=== PATIENT | female | born 1975 | race Caucasian/White ===

== ENCOUNTER → 2024-04-16 | Outpatient (CLI) | payer BC ==
--- NOTE | 2024-04-16 15:32 | US ---
EXAMINATION TYPE: US kidneys/renal and bladder DATE OF EXAM: 04/16/2024 COMPARISON: NONE CLINICAL INDICATION: Female, 49 years old with history of N39.0 FREQUENT UTI; Frequent UTI's with fev ers EXAM MEASUREMENTS: Right Kidney: 6.8 x 3.8 x 3.2 cm Left Kidney: 10.2 x 6.6 x 7.0 cm Right Kidney: Appears small in size compared to contralateral kidney, cortical lobularity seen Left Kidney: No hydronephrosis or masses seen Bladder: anechoic, moderately distended Bilateral Jets not seen There is no evidence for hydronephrosis at this point in time. No nephrolithiasis is seen. No sharon s are identified. The urinary bladder is anechoic. IMPRESSION: 1. Atrophic changes right kidney. 3. Moderately distended urinary bladder.
== END | disposition home or self-care (01) ==
LOC: RADUSWWP 14:32
PROVIDERS: ATTEND Family Medicine
DX: N26.1 Atrophy of kidney (terminal) (principal); N32.89 Other specified disorders of bladder; N39.0 Urinary tract infection, site not specified
CPT/HCPCS: 76770

== ENCOUNTER 2024-06-29 23:21 | Emergency (ER) | payer BC ==
[2024-06-29 23:29] VITALS: TEMP 98.1
[2024-06-30 00:29] LABS: Basophils % (A) 0 %; Eosinophils # (A) 0.7 k/uL (0-0.7); Eosinophils % (A) 9 %; HCT 35.6 % (34.0-46.0); HGB 11.9 gm/dL (11.4-16.0); Lymphocytes # (A) 2.3 k/uL (1.0-4.8); Lymphocytes % (A) 29 %; MCH 28.6 pg (25.0-35.0); MCHC 33.4 g/dL (31.0-37.0); MCV 85.7 fL (80.0-100.0); Mean Platelet Volume 8.3; Monocytes # (A) 0.4 k/uL (0-1.0); Monocytes % (A) 5 %; Neutrophils # (A) 4.3 k/uL (1.3-7.7); Neutrophils % (A) 54 %; Platelet Count 233 k/uL (150-450); RBC 4.15 m/uL (3.80-5.40)
[2024-06-30 00:47] LABS: INR 0.9 (<1.2); Partial Thromboplastin Time 23.4 sec (22.0-30.0); Prothrombin Time 9.8 sec (10.0-12.5)
[2024-06-30 00:52] LABS: ALT 15 U/L (4-34); AST 38 U/L (14-36); African American GFR (CKD) >90 (>60 ml/min/1.73 sqM); Albumin 3.6 g/dL (3.5-5.0); Alkaline Phosphatase 87 U/L (38-126); Amylase 48 U/L (30-110); Anion Gap 2 mmol/L; Blood Urea Nitrogen 11 mg/dL (7-17); Carbon Dioxide 27 mmol/L (22-30); Chloride 108 mmol/L (98-107); Glucose 90 mg/dL (74-99); Lipase 176 U/L (23-300); Magnesium 1.6 mg/dL (1.6-2.3); Non-African American GFR(CKD) >90 (>60 ml/min/1.73 sqM); Potassium 4.6 mmol/L (3.5-5.1); Sodium 137 mmol/L (137-145); Total Bilirubin 0.7 mg/dL (0.2-1.3); Total Protein 6.5 g/dL (6.3-8.2)
--- NOTE | 2024-06-30 01:36 | XR ---
EXAM: XR Chest, 2 Views CLINICAL HISTORY: ITS.REASON XR Reason: Chest Pain TECHNIQUE: Frontal and lateral views of the chest. COMPARISON: None FINDINGS: Hardware: None. Lungs/pleura: Normal. No focal consolidation. No pleural effusion or pneumothorax. Heart/mediastinum: Normal. No cardiomegaly. Soft tissues: Unremarkable. Bones: No acute fracture. Degenerative changes of the spine. Upper abdomen: Cholecystectomy clips in the right upper quadrant. IMPRESSION: No acute disease identified.
--- NOTE | 2024-06-30 01:39 | ED ---
Chest Pain HPI - General Chief Complaint: Chest Pain Stated Complaint: CP Time Seen by Provider: 06/30/24 01:06 Source: patient Mode of arrival: ambulatory Limitations: no limitations - History of Present Illness Initial Comments: This patient is a 49-year-old woman who had panniculectomy performed on Sunday, noted that she was having some pain in the right side of the chest on Sunday, particularly with inspiration. She has not noted fever or chills. No dyspnea. No cough or hemoptysis. MD Complaint: chest pain -: days(s) Onset: during rest Pain Location: right chest Pain Radiation: none Severity: moderate Quality: aching Consistency: constant Improves With: nothing Worsens With: inspiration Treatments Prior to Arrival: none - Related Data Previous Rx's Medication Instructions Recorded Apixaban [Eliquis Starter Pack 5 - 10 mg PO DIRECTED 30 Days 07/05/24 (for VTE)] #1 each Allergies Allergy/AdvReac Type Severity Reaction Status Date / Time cefazolin [From Ancef] Allergy Rash/Hives Verified 07/02/24 00:00 sulfamethoxazole Allergy Rash/Hives Verified 07/02/24 00:00 [From Bactrim] trimethoprim [From Bactrim] Allergy Rash/Hives Verified 07/02/24 00:00 wheat Allergy Anaphylaxis Verified 07/02/24 00:00 NSAIDS (Non-Steroidal AdvReac Unknown Verified 07/02/24 00:00 Anti-Inflamma Review of Systems ROS Statement: Those systems with pertinent positive or pertinent negative responses have been documented in the HPI. ROS Other: All systems not noted in ROS Statement are negative. Constitutional: Denies: fever, chills Respiratory: Denies: cough, dyspnea, wheezes Cardiovascular: Reports: chest pain, edema. Denies: palpitations, orthopnea, syncope Gastrointestinal: Denies: abdominal pain, nausea, vomiting Genitourinary: Denies: dysuria, hematuria Musculoskeletal: Denies: back pain Skin: Denies: rash Neurological: Denies: headache, weakness EKG Findings - EKG Results: EKG: interpreted by BUSHRA MCALLISTERL, sinus rhythm (Rate 82 bpm), normal axis, normal QRS, normal ST/T, no acute changes - [place], Pacemaker, Normal: Normal tracing: normal tracing Past Medical History Past Medical History: No Reported History History of Any Multi-Drug Resistant Organisms: None Reported Past Surgical History: Bariatric Surgery, Cholecystectomy Additional Past Surgical History / Comment(s): lapectomy, sinus Past Psychological History: ADD/ADHD Smoking Status: Never smoker Past Alcohol Use History: Occasional Past Drug Use History: None Reported General Exam Limitations: no limitations General appearance: alert, in no apparent distress Head exam: Present: atraumatic, normocephalic Eye exam: Present: normal appearance. Absent: scleral icterus, conjunctival in jection Neck exam: Present: normal inspection Respiratory exam: Present: normal lung sounds bilaterally. Absent: respiratory distress, wheezes, rales, rhonchi, stridor, accessory muscle use Cardiovascular Exam: Present: regular rate, normal rhythm, normal heart sounds. Absent: systolic murmur, diastolic murmur, rubs, gallop GI/Abdominal exam: Present: soft. Absent: distended, tenderness, guarding, rebound, rigid, mass Extremities exam: Present: normal inspection, normal capillary refill. Absent: pedal edema, calf tenderness Back exam: Present: normal inspection. Absent: CVA tenderness (R), CVA tenderness (L) Neurological exam: Present: alert Skin exam: Present: warm, dry, intact, normal color. Absent: rash Course Vital Signs 06/29/24 06/30/24 06/30/24 23:25 01:55 03:29 Temperature 98.1 F Pulse Rate 91 87 91 Respiratory 18 16 18 Rate Blood Pressure 149/86 149/101 143/93 O2 Sat by Pulse 100 95 96 Oximetry Chest Pain [facility] Patient is 49-year-old woman with a recent surgical history presenting with chest pain concerning for possible pulmonary embolism. The patient did have CT scan of the chest with contrast that I interpreted as negative for acute pulmonary embolism, negative for pneumothorax. The patient feeling better on reevaluation and would like to go home. She does appear stable we discussed the appropriate further care and follow-up as well as return parameters. Patient had chest x-ray that I interpreted as negative for acute infiltrate, negative for pneumothorax or congestive heart failure. Was pt. sent in by a medical professional or institution (, PA, REPULPING SUPERVISOR, urgent care, hospital, or intermediate...) When possible be specific @ -[No] Did you speak to anyone other than the patient for history (EMS, parent, family, police, friend...)? What history was obtained from this source @ -[No] Did you review nursing and triage notes (agree or disagree)? Why? @ -[I reviewed and agree with nursing and triage notes] Were old charts reviewed (outside hosp., previous admission, EMS record, old EKG, old radiological studies, urgent care reports/EKG's, intermediate records)? Report findings @ -[No old charts were reviewed] Differential Diagnosis (chest pain, altered mental status, abdominal pain women, abdominal pain men, vaginal bleeding, weakness, fever, dyspnea, syncope, headache, dizziness, GI bleed, back pain, seizure, CVA, palpatations, mental health, musculoskeletal)? @ -[Differential Chest Pain: Stable Angina, Unstable Angina, STEMI, NSTEMI Aortic Dissection, Pneumothorax, Musculoskeletal, Esophageal Spasm GERD, Cholecystitis, Pancreatitis, Zoster, this is not meant to be an all-inclusive list. EKG interpreted by me (3pts min.). @ -[I interpreted as above X-rays interpreted by me (1pt min.). @ -[I interpreted as above CT interpreted by me (1pt min.). @ -[I interpreted as above U/S interpreted by me (1pt. min.). @ -[None done] What testing was considered but not performed or refused? (CT, X-rays, U/S, labs)? Why? @ -[None] What meds were considered but not given or refused? Why? @ -[None] Did you discuss the management of the patient with other professionals (professionals i.e. , PA, REPULPING SUPERVISOR, lab, RT, psych nurse, vp digital marketing social media and crm, front office specialist, teacher, horticultural technical officer, case investigator)? Give summary @ -[No] Was smoking cessation discussed for >3mins.? @ -[No] Was critical care preformed (if so, how long)? @ -[No] Were there social determinants of health that impacted care today? How? (Homeles sness, low income, unemployed, alcoholism, drug addiction, transportation, low edu. Level, literacy, decrease access to med. care, assisted, rehab)? @ -[No] Was there de-escalation of care discussed even if they declined (Discuss DNR or withdrawal of care, Hospice)? DNR status @ -[No] What co-morbidities impacted this encounter? (DM, HTN, Smoking, COPD, CAD, Cancer, CVA, ARF, Chemo, Hep., AIDS, mental health diagnosis, sleep apnea, morbid obesity)? @ -[Recent panniculectomy Was patient admitted / discharged? Hospital course, mention meds given and route, prescriptions, significant lab abnormalities, going to OR and other pertinent info. @ -[As above Undiagnosed new problem with uncertain prognosis? @ -[No] Drug Therapy requiring intensive monitoring for toxicity (Heparin, Nitro, Insulin, Cardizem)? @ -[No] Were any procedures done? @ -[No] Diagnosis/symptom? @ -[Acute chest pain Acute, or Chronic, or Acute on Chronic? @ -[Acute Uncomplicated (without systemic symptoms) or Complicated (systemic symptoms)? @ -[Uncomplicated Side effects of treatment? @ -[No] Exacerbation, Progression, or Severe Exacerbation? @ -[No] Poses a threat to life or bodily function? How? (Chest pain, [place], [place], pneumonia, PE, COPD, DKA, ARF, appy, cholecystitis, CVA, Diverticulitis, Homicidal, Suicidal, threat to staff... and all critical care pts) @ -[No] Disposition Clinical Impression: Chest pain Disposition: HOME SELF-CARE Condition: Good Instructions (If sedation given, give patient instructions): Chest Pain (ED) Is patient prescribed a controlled substance at d/c from ED?: No Referrals: Mitul Morris MD [Primary Care Provider] - 1-2 days
--- NOTE | 2024-06-30 02:00 | CT ---
EXAM: CT Angiography Chest With Intravenous Contrast CLINICAL HISTORY: ITS.REASON CT Reason: chest pain, possible PE TECHNIQUE: Axial computed tomographic angiography images of the chest with intravenous contrast. CTDI is 7.2 mGy and DLP is 276.9 mGy-cm. This CT exam was performed using one or more of the following dose reduction techniques: automated exposure control, adjustment of the mA and/or kV according to patient size, and/or use of iterative reconstruction technique. MIP reconstructed images were created and reviewed. COMPARISON: None FINDINGS: Pulmonary arteries: Unremarkable. No pulmonary embolus identified. Aorta: No acute findings. No aortic aneurysm or dissection. Lungs: Mild groundglass opacities in the left upper lobe and at the lung bases may represent atelectasis. Mild infectious/inflammatory process cannot be excluded. Pleural space: Unremarkable. No significant effusion. No pneumothorax. Heart: Unremarkable. No cardiomegaly. No significant pericardial effusion. No evidence of RV dysfunction. Bones/joints: Degenerative changes of the spine. No acute fracture. No dislocation. Soft tissues: Body wall edema. Lymph nodes: Unremarkable. No enlarged lymph nodes. Gallbladder and bile ducts: Prior cholecystectomy. Stomach and bowel: Gastric bypass changes. Evaluation of the stomach is limited by under distention. IMPRESSION: 1. No pulmonary embolus identified. 2. No aortic aneurysm or dissection. 3. Mild groundglass opacities in the left upper lobe and at the lung bases may represent atelectasis. Mild infectious/inflammatory process cannot be excluded.
[2024-06-30 03:45] VITALS: BP 143/93; PULSE 91; RESP 18
== END 2024-06-30 03:46 | disposition home or self-care (01) ==
LOC: EC 23:21
CPT/HCPCS: 36415; 71046; 71275; 80053; 82150; 83605; 83690; 83735; 84484; 85025; 85610; 85730; 93005; 99285

== ENCOUNTER 2024-07-01 23:59 | Emergency (ER) | payer BC ==
[2024-07-02 00:06] VITALS: TEMP 98
--- NOTE | 2024-07-02 00:20 | ED ---
Extremity Problem HPI - General Source: patient Mode of arrival: ambulatory Limitations: no limitations <Davey Blevins - Last Filed: 07/02/24 21:18> <Paola Avelar - Last Filed: 07/10/24 10:07> - General Chief complaint: Extremity Problem,Nontraumatic Stated complaint: left leg swelling and redness Time Seen by Provider: 07/02/24 00:10 - History of Present Illness Initial comments: 49-year-old female presenting with chief complaint of pain and swelling to lower extremities. Patient had a panniculectomy performed about a week ago. She is having swelling to the lower extremities. She also noticed today a somewhat reddened and tender swollen area to the upper thigh. She is having no chest pain or difficulty breathing. She was here on the with chest pain and had a CTA performed which was negative for PE. (Davey Blevins) - Related Data Previous Rx's Medication Instructions Recorded Apixaban [Eliquis Starter Pack 5 - 10 mg PO DIRECTED 30 Days 07/05/24 (for VTE)] #1 each Allergies Allergy/AdvReac Type Severity Reaction Status Date / Time cefazolin [From Ancef] Allergy Rash/Hives Verified 07/02/24 00:00 sulfamethoxazole Allergy Rash/Hives Verified 07/02/24 00:00 [From Bactrim] trimethoprim [From Bactrim] Allergy Rash/Hives Verified 07/02/24 00:00 wheat Allergy Anaphylaxis Verified 07/02/24 00:00 NSAIDS (Non-Steroidal AdvReac Unknown Verified 07/02/24 00:00 Anti-Inflamma Review of Systems ROS Other: All systems not noted in ROS Statement are negative. <Davey Blevins - Last Filed: 07/02/24 21:18> ROS Other: All systems not noted in ROS Statement are negative. <Paola Avelar - Last Filed: 07/10/24 10:07> ROS Statement: Those systems with pertinent positive or pertinent negative responses have been documented in the HPI. Past Medical History Past Medical History: No Reported History History of Any Multi-Drug Resistant Organisms: None Reported Past Surgical History: Bariatric Surgery, Cholecystectomy Additional Past Surgical History / Comment(s): lapectomy, sinus, vein stripping procedure, Past Psychological History: ADD/ADHD Smoking Status: Never smoker Past Alcohol Use History: Occasional Past Drug Use History: None Reported <Davey Blevins - Last Filed: 07/02/24 21:18> General Exam Limitations: no limitations General appearance: alert, in no apparent distress Head exam: Present: atraumatic, normocephalic, normal inspection Eye exam: Present: normal appearance, EOMI Neck exam: Present: normal inspection. Absent: meningismus Respiratory exam: Absent: respiratory distress, wheezes, stridor Cardiovascular Exam: Present: regular rate Extremities exam: Present: pedal edema Neurological exam: Present: alert, oriented X3 Psychiatric exam: Present: normal affect, normal mood Skin exam: Present: warm, dry <Davey Blevins - Last Filed: 07/02/24 21:18> Course Vital Signs 07/02/24 07/02/24 00:00 05:34 Temperature 98.0 F Pulse Rate 82 72 Respiratory 13 18 Rate Blood Pressure 136/84 117/84 O2 Sat by Pulse 100 99 Oximetry Medical Decision Making <Davey Blevins - Last Filed: 07/02/24 21:18> <Paola Avelar - Last Filed: 07/10/24 10:07> - Medical Decision Making Was pt. sent in by a medical professional or institution (, PA, PNEUMATIC SYSTEM CONVEYOR OPERATOR, urgent care, hospital, or shelter...) When possible be specific @ -No Did you speak to anyone other than the patient for history (EMS, parent, family, police, friend...)? What history was obtained from this source @ -No Did you review nursing and triage notes (agree or disagree)? Why? @ -I reviewed and agree with nursing and triage notes Were old charts reviewed (outside hosp., previous admission, EMS record, old EKG, old radiological studies, urgent care reports/EKG's, shelter records)? Report findings @ -No old charts were reviewed Differential Diagnosis (chest pain, altered mental status, abdominal pain women, abdominal pain men, vaginal bleeding, weakness, fever, dyspnea, syncope, headache, dizziness, GI bleed, back pain, seizure, CVA, palpatations, mental health, musculoskeletal)? @ -Differential Musculoskeletal Muscular strain, contusion, ligament sprain, fracture, arthritis, septic arthritis, bursitis, cellulitis, muscle spasm, nerve compression, DVT, arterial occlusion, herpes zoster, electrolyte abnormality, tumor.... This is not meant to be in all inclusive list EKG interpreted by me (3pts min.). @ -As above X-rays interpreted by me (1pt min.). @ -None done CT interpreted by me (1pt min.). @ -None done U/S interpreted by me (1pt. min.). @ -Report is pending What testing was considered but not performed or refused? (CT, X-rays, U/S, labs)? Why? @ -None What meds were considered but not given or refused? Why? @ -None Did you discuss the management of the patient with other professionals (professionals i.e. Dr., PA, PNEUMATIC SYSTEM CONVEYOR OPERATOR, lab, RT, psych nurse, social media content specialist, longwall headgate operator, teacher, combat information center officer, special education case manager)? Give summary @ -No Was smoking cessation discussed for >3mins.? @ -No Was critical care preformed (if so, how long)? @ -No Were there social determinants of health that impacted care today? How? (Homelessness, low income, unemployed, alcoholism, drug addiction, transportation, low edu. Level, literacy, decrease access to med. care, custodial, rehab)? @ -No Was there de-escalation of care discussed even if they declined (Discuss DNR or withdrawal of care, Hospice)? DNR status @ -No What co-morbidities impacted this encounter? (DM, HTN, Smoking, COPD, CAD, Cancer, CVA, ARF, Chemo, Hep., AIDS, mental health diagnosis, sleep apnea, morbid obesity)? @ -None Was patient admitted / discharged? Hospital course, mention meds given and route, prescriptions, significant lab abnormalities, going to OR and other pertinent info. @ -49-year-old female presenting with chief complaint of swelling to lower extremities. Recent panniculectomy last Sunday. Ultrasound is ordered to rule out DVT. Report is pending and patient is signed out to my attending Dr. Avelar (Davey Blevins) Patient signed out to myself by Linnette SIMS. Pending DVT ultrasound. Was patient admitted / discharged? Hospital course, mention meds given and route, prescriptions, significant lab abnormalities, going to OR and other pertinent info. @ -Discharged Ultrasound resulted with nonocclusive clot in the large saphenous vein. Given patient's recent surgery, I feel risk of bleeding from starting anticoagulation outweighs benefit as DVT is not and the deep venous system. I discussed with the patient plan for warm compresses, compression stockings and plan for follow- up ultrasound in the next 3 to 5 days. We discussed elevating her legs and performing frequent leg exercises. Patient is unable to take NSAIDs due to hx gastric bypass. Patient to follow up with her PCP for repeat ultrasound and r eassessment in next 3-5 days. Discussed with the patient the importance of monitoring for worsening symptoms, lack of improvement of symptoms with these interventions, or new shortness of breath or chest pain and should she experience the symptoms she needs to return to the emergency department immediately. Patient is comfortable and agreeable with this plan. In my medical judgment there is currently no evidence of an immediate life- threatening or surgical condition. Discharge is therefore indicated at this time. Discharge treatment instructions, follow up instructions, and appropriate e mergency department return precautions were discussed with the patient and/or medical decision maker. Patient and/or medical decision maker expressed understanding of and agreed with the treatment plan, follow up instructions, and emergency department return precaution. All patient's and/or medical decision maker's questions were answered. Undiagnosed new problem with uncertain prognosis? @ -No Drug Therapy requiring intensive monitoring for toxicity (Heparin, Nitro, Insulin, Cardizem)? @ -No Were any procedures done? @ -No Diagnosis/symptom? @Superficial DVT Acute, or Chronic, or Acute on Chronic? @Acute Uncomplicated (without systemic symptoms) or Complicated (systemic symptoms)? @ -Uncomplicated Side effects of treatment? @ -No Exacerbation, Progression, or Severe Exacerbation? @ -No Poses a threat to life or bodily function? How? (Chest pain, [place], [place], pneumonia, PE, COPD, DKA, ARF, appy, cholecystitis, CVA, Diverticulitis, Homicidal, Suicidal, threat to staff... and all critical care pts) @ No (Paola Avelar) Disposition Is patient prescribed a controlled substance at d/c from ED?: No <Davey Blevins - Last Filed: 07/02/24 21:18> Is patient prescribed a controlled substance at d/c from ED?: No <Paola Avelar - Last Filed: 07/10/24 10:07> Clinical Impression: Leg swelling, Superficial thrombophlebitis Disposition: HOME SELF-CARE Condition: Good Instructions (If sedation given, give patient instructions): Leg Edema (ED) Additional Instructions: Every disease is a spectrum and a small chance still exists that a serious c ondition could develop, for this reason, please monitor yourself closely for new, changing or worsening symptoms, symptoms that do not improve in the next 3 to 5 days, worsening redness, swelling or pain in your affected extremity, chest pain or shortness of breath [fever], inability to tolerate/keep down fluids or your medications, inability to follow up with outpatient providers as instructed and should you experience these symptoms or should you have any further concerns for your wellbeing please return to the ED or call 911 immediately. Please wear tall (up to your upper thigh if possible) compression stockings as often as possible, apply warm compresses to the affected area for 20 minutes every 3-4 hours, frequently elevate your legs and continue gentle exercises and walking as you are able to tolerate, follow-up with your primary care doctor for a repeat ultrasound in the next 3 to 5 days and if you are unable to please return to the emergency department for repeat ultrasound to monitor DVT. PLEASE call your primary care physician as soon as possible to arrange / discuss plan for followup appointment. Appointment in the next 1-3 days is strongly encouraged if possible. PLEASE let us know here before you leave if there is anything further we can do to be of any assistance. Take care and feel Better! . Referrals: Mitul Morris MD [Primary Care Provider] - 1-2 days
--- NOTE | 2024-07-02 04:52 | US ---
EXAM: US Duplex Bilateral Lower Extremities Veins CLINICAL HISTORY: ITS.REASON US Reason: Swelling, recent surgery TECHNIQUE: Real-time duplex ultrasound scan of the bilateral lower extremity veins integrating B-mode two-dimensional vascular structure, Doppler spectral analysis, color flow Doppler imaging and compression. COMPARISON: None FINDINGS: Right deep veins: Unremarkable. No DVT in the right common femoral, femoral, proximal deep femoral or popliteal veins. The veins demonstrate normal color flow, are normally compressible, with normal phasic flow and/or augmentation response. Right superficial veins: Unremarkable. No thrombus in the visualized right great saphenous vein. Left deep veins: Unremarkable. No DVT in the left common femoral, femoral, proximal deep femoral or popliteal veins. The veins demonstrate normal color flow, are normally compressible, with normal phasic flow and/or augmentation response. Left superficial veins: Nonocclusive thrombus in the visualized left greater saphenous vein. Soft tissues: No acute findings. No popliteal cyst. IMPRESSION: Nonocclusive thrombus in the visualized left greater saphenous vein. No deep venous thrombosis identified in either lower extremity.
[2024-07-02 05:37] VITALS: BP 117/84; PULSE 72; RESP 18
== END 2024-07-02 05:38 | disposition home or self-care (01) ==
LOC: EC 23:59
CPT/HCPCS: 93970; 99283

== ENCOUNTER 2024-07-05 12:15 | Emergency (ER) | payer BC ==
--- NOTE | 2024-07-05 12:42 | ED ---
General Adult HPI - General Chief complaint: Extremity Problem,Nontraumatic Stated complaint: L Leg Blood Clot Time Seen by Provider: 07/05/24 12:25 Source: patient, RN notes reviewed, old records reviewed Mode of arrival: ambulatory Limitations: no limitations - History of Present Illness Initial comments: Is a 49-year-old female who presents to the emergency department to get an ultrasound of her left leg. Patient was here 3 days ago and it was a nonocclusive clot in the left leg and she was instructed to follow-up with her primary medical care doctor when she spoke with the office today they told her to come to the emergency department to get another ultrasound. Patient denies any increased swelling or redness. Patient denies any increased tenderness. Patient is any shortness of breath difficulty breathing or chest pain - Related Data Previous Rx's Medication Instructions Recorded Apixaban [Eliquis Starter Pack 5 - 10 mg PO DIRECTED 30 Days 07/05/24 (for VTE)] #1 each Allergies Allergy/AdvReac Type Severity Reaction Status Date / Time cefazolin [From Ancef] Allergy Rash/Hives Verified 07/02/24 00:00 sulfamethoxazole Allergy Rash/Hives Verified 07/02/24 00:00 [From Bactrim] trimethoprim [From Bactrim] Allergy Rash/Hives Verified 07/02/24 00:00 wheat Allergy Anaphylaxis Verified 07/02/24 00:00 NSAIDS (Non-Steroidal AdvReac Unknown Verified 07/02/24 00:00 Anti-Inflamma Review of Systems ROS Statement: Those systems with pertinent positive or pertinent negative responses have been documented in the HPI. ROS Other: All systems not noted in ROS Statement are negative. Past Medical History Past Medical History: No Reported History History of Any Multi-Drug Resistant Organisms: None Reported Past Surgical History: Bariatric Surgery, Cholecystectomy Additional Past Surgical History / Comment(s): lapectomy, sinus, vein stripping procedure, Past Psychological History: ADD/ADHD Smoking Status: Never smoker Past Alcohol Use History: Occasional Past Drug Use History: None Reported General Exam - General Exam Comments Initial Comments: GENERAL: Patient is well-developed and well-nourished. Patient is nontoxic and well- hydrated and is in mild distress. ENT: Neck is soft and supple. No significant lymphadenopathy is noted. Oropharynx is clear. Moist mucous membranes. Neck has full range of motion without eliciting any pain. EYES: The sclera were anicteric and conjunctiva were pink and moist. Extraocular movements were intact and pupils were equal round and reactive to light. Eyelids were unremarkable. SKIN: Skin is clear with no lesions or rashes and otherwise unremarkable. NEUROLOGIC: Patient is alert and oriented x3. Cranial nerves II through XII are grossly intact. Motor and sensory are also intact. Normal speech, volume and content. Symmetrical smile. MUSCULOSKELETAL: Normal extremities with adequate strength and full range of motion. No lower extremity swelling or edema. No calf tenderness. LYMPHATICS: No significant lymphadenopathy is noted PSYCHIATRIC: Normal psychiatric evaluation. Limitations: no limitations Course Vital Signs 07/05/24 12:22 Temperature 98.0 F Pulse Rate 86 Respiratory 18 Rate Blood Pressure 120/84 O2 Sat by Pulse 100 Oximetry Medical Decision Making - Medical Decision Making Was pt. sent in by a medical professional or institution (, PA, SLIP PRESSER, urgent care, hospital, or [facility]...) When possible be specific @ -Patient's primary medical care doctor sent the patient to be evaluated Did you speak to anyone other than the patient for history (EMS, parent, family, police, friend...)? What history was obtained from this source @ -No Did you review nursing and triage notes (agree or disagree)? Why? @ -I reviewed and agree with nursing and triage notes Were old charts reviewed (outside hosp., previous admission, EMS record, old EKG, old radiological studies, urgent care reports/EKG's, [facility] records)? Report findings @ -No old charts were reviewed Differential Diagnosis? @ -DVT, superficial blood clot, pedal edema, cellulitis, this is not an all- inclusive list EKG interpreted by me (3pts min.). @ -As above X-rays interpreted by me (1pt min.). @ -None done CT interpreted by me (1pt min.). @ -None done U/S interpreted by me (1pt. min.). @ -Ultrasound showed a definitive clot in the greater saphenous vein on the left questionable on the right and both are within 2 cm of the deep system What testing was considered but not performed or refused? (CT, X-rays, U/S, labs)? Why? @ -None What meds were considered but not given or refused? Why? @ -None Did you discuss the management of the patient with other professionals (professionals i.e. , PA, SLIP PRESSER, lab, RT, psych nurse, licensed master social worker, corncob pipes assembler, teacher, protocol officer, disability case manager)? Give summary @ -No Was smoking cessation discussed for >3mins.? @ -No Was critical care preformed (if so, how long)? @ -No Were there social determinants of health that impacted care today? How? (Homelessness, low income, unemployed, alcoholism, drug addiction, transportation, low edu. Level, literacy, decrease access to med. care, group home, rehab)? @ -No Was there de-escalation of care discussed even if they declined (Discuss DNR or withdrawal of care, Hospice)? DNR status @ -No What co-morbidities impacted this encounter? (DM, HTN, Smoking, COPD, CAD, Cancer, CVA, ARF, Chemo, Hep., AIDS, mental health diagnosis, sleep apnea, morbid obesity)? @ -None Was patient admitted / discharged? Hospital course, mention meds given and route, prescriptions, significant lab abnormalities, going to OR and other pertinent info. @ -Because the patient has a superficial clot close to the deep system patient was given Eliquis in the emergency department and will be sent home on Eliquis Undiagnosed new problem with uncertain prognosis? @ -No Drug Therapy requiring intensive monitoring for toxicity (Heparin, Nitro, Insulin, Cardizem)? @ -No Were any procedures done? @ -No Diagnosis/symptom? @ -Greater saphenous vein blood clot Acute, or Chronic, or Acute on Chronic? @ -Default Uncomplicated (without systemic symptoms) or Complicated (systemic symptoms)? @ -Complicated Side effects of treatment? @ -No Exacerbation, Progression, or Severe Exacerbation? @ -No Poses a threat to life or bodily function? How? (Chest pain, USA, MD, pneumonia, PE, COPD, DKA, ARF, appy, cholecystitis, CVA, Diverticulitis, Homicidal, Suicidal, threat to staff... and all critical care pts) @ -No Disposition Clinical Impression: Saphenous vein clot Disposition: HOME SELF-CARE Condition: Good Prescriptions: Apixaban [Eliquis Starter Pack (for VTE)] 5 - 10 mg PO DIRECTED 30 Days #1 each Is patient prescribed a controlled substance at d/c from ED?: No Referrals: Mitul Morris MD [Primary Care Provider] - 1-2 days
--- NOTE | 2024-07-05 13:42 | US ---
EXAMINATION TYPE: US venous doppler duplex LE DATE OF EXAM: 07/05/2024 1:24 PM COMPARISON: US 07/02/2024 CLINICAL INDICATION: Female, 49 years old with history of Blood clot; Pain in right leg. No hx of DVT . Last US showed SVT on 07/02/24. Patient is taking aspirin. Patient states she had a procedure on the veins in both of her legs a couple years ago. SIDE PERFORMED: Bilateral TECHNIQUE: The lower extremity deep venous system is examined utilizing real time linear array sonog taya with graded compression, color doppler sonography, and spectral doppler. VESSELS IMAGED: Common Femoral Vein Deep Femoral Vein Greater Saphenous Vein * Femoral Vein Popliteal Vein Small Saphenous Vein * Proximal Calf Veins (* superficial vessels) Right Leg: No evidence of DVT. Thrombus seen within GSV at the mid thigh level- lack of color flow s een within noncompressible vessel. *There also appears to be possible thrombus within tortuous GSV in the groin 0.78 cm from the junctio n with the CFV. Question thrombus at this level as internal echoes are seen. Left Leg: No evidence of DVT. *Thrombus seen in GSV 0.45 cm from the junction with the CFV. Noncompr essible vessel shows lack of color flow within. IMPRESSION: 1. No deep venous thrombosis within the bilateral lower extremities. 2. There is superficial venous thrombosis within the greater saphenous veins bilaterally in close manuel roximation with the junction of the common femoral veins. [facility], Workstation: [id number], 07/05/2024 1:39 PM
[2024-07-05] MEDS: APIXABAN 5 MG TAB PO STA (14:28)
[2024-07-05 14:36] VITALS: BP 125/83; PULSE 74; RESP 20; TEMP 97.7
[2024-07-05] MEDS ORDERED: APIXABAN 5 MG TAB PO SCH (21:00)
== END 2024-07-05 14:38 | disposition home or self-care (01) ==
LOC: EC 12:15
CPT/HCPCS: 93970; 99283